=== PATIENT | male | born 1965 | race Two or more races ===

== ENCOUNTER 2022-08-22 11:50 | Emergency (ER) | payer BC ==
[~2022-08-22] VITALS: Ht 165.1 cm; Wt 72.6 kg
--- NOTE | 2022-08-22 12:13 | NUR ---
TO ER BED3. BIBS C/O PAIN ON HER RIGHT SIDE OF HIS CHEST THAT STARTED LAST NIGHT. PT IS TAKEN ANTIBIOTICS FOR DIVERTICULITIS. PAIN 7/10 ON PAIN SCALE. ATTACHED TO MONITOR, VITALS ARE WITHIN NORMAL LIMITS. AWAITING MD ORDERS.
[2022-08-22 12:46] LABS: BASOPHILS % (AUTO) 0.8 % (0.0-2.0); EOSINOPHILS % (AUTO) 1.9 % (0.0-6.0); HEMATOCRIT 45 % (39-51); LYMPHOCYTES # (AUTO) 1.9 K/uL (0.8-4.8); LYMPHOCYTES % (AUTO) 34.1 % (20.0-44.0); MEAN CORPUSCULAR HGB CONC 34 g/dl (31.0-36.0); MEAN CORPUSCULAR VOLUME 93 fL (80-96); MONOCYTES # (AUTO) 0.5 K/uL (0.1-1.30); MONOCYTES % (AUTO) 8.6 % (2.0-12.0); NEUTROPHILS # (AUTO) 3.1 K/uL (1.8-8.9); NEUTROPHILS % (AUTO) 54.6 % (43.0-81.0); PLATELET COUNT (AUTO) 199 K/uL (150-450); RED BLOOD CELL COUNT(AUTO) 4.83 MIL/uL (4.5-6.0); WHITE BLOOD COUNT (AUTO) 5.6 K/uL (4.3-11.0)
[2022-08-22 13:40] LABS: ALANINE AMINOTRANSFERASE 35 U/L (12-78); ALKALINE PHOSPHATASE 57 U/L (46-116); ASPARTATE AMINOTRANSFERASE 16 U/L (15-37); BILIRUBIN,TOTAL 0.7 mg/dL (0.2-1.0); CALCIUM, SERUM 9.1 mg/dL (8.5-10.1); CHLORIDE 108 mmol/L (98-107); GLUCOSE 109 mg/dL (74-106); POTASSIUM 4.5 mmol/L (3.5-5.1); SODIUM SERUM 143 mmol/L (136-145); TOTAL PROTEIN, SERUM 7.4 g/dL (6.4-8.2); UREA NITROGEN, BLOOD 14 mg/dL (7-18)
[2022-08-22 14:43] VITALS: BP 113/72
--- NOTE | 2022-08-22 14:43 | NUR ---
Patient discharged to home in stable condition. Written and verbal after care instructions given. Patient verbalizes understanding of instruction.
[2022-08-22 15:05] LABS: BILIRUBIN,DIRECT 0.1 mg/dL (0.0-0.2); CARBON DIOXIDE 24 mmol/L (21-32)
== END 2022-08-22 14:43 | disposition home or self-care (01) ==
LOC: ER 12:06
DX: R07.89 Other chest pain (principal)
CPT/HCPCS: 36415; 71045-TC; 80048-TC; 80076-TC; 83690-TC; 84484-TC; 85025-TC

== ENCOUNTER 2022-08-28 09:12 | Emergency (ER) | payer BC ==
[~2022-08-28] VITALS: Ht 165.1 cm; Wt 69.9 kg
[2022-08-28] MEDS ORDERED: KETOROLAC TROMETHAMINE INJ 30 MG/ML VIAL IV ONE (10:00)
[2022-08-28] MEDS ORDERED: ONDANSETRON HCL/PF 4 MG/2 ML VIAL IVP ONE (10:00)
[2022-08-28] MEDS ORDERED: IV NS 0.9% 1,000 ML BAG IV ONE (10:00)
--- NOTE | 2022-08-28 10:15 | NUR ---
IV ACCESS ESTABLISHED 18G LEFT AC. BLOOD DRAWN AND SENT TO LAB
[2022-08-28 10:44] LABS: CALCIUM, SERUM 9.5 mg/dL (8.5-10.1); POTASSIUM 4.2 mmol/L (3.5-5.1)
[2022-08-28 10:50] LABS: BILIRUBIN,DIRECT 0.1 mg/dL (0.0-0.2); BILIRUBIN,TOTAL 0.7 mg/dL (0.2-1.0); TOTAL PROTEIN, SERUM 7.4 g/dL (6.4-8.2)
[2022-08-28] MEDS ORDERED: ONDANSETRON HCL/PF 4 MG/2 ML VIAL ONE (10:57)
[2022-08-28] MEDS ORDERED: KETOROLAC TROMETHAMINE 15 MG/ML VIAL ONE (10:57)
--- NOTE | 2022-08-28 11:00 | NUR ---
BIBS C/O VOMITTING, DIARRHEA, LEFT SIDED ABDOMINAL PAIN RADIATING TO LEFT LOWER BACK PAIN. MD AT BEDSIDE FOR EVAL
[2022-08-28 11:09] LABS: BASOPHILS % (AUTO) 0.8 % (0.0-2.0); EOSINOPHILS % (AUTO) 2.5 % (0.0-6.0); HEMATOCRIT 45 % (39-51); HEMOGLOBIN 15.4 g/dL (13.5-17.5); LYMPHOCYTES # (AUTO) 1.9 K/uL (0.8-4.8); LYMPHOCYTES % (AUTO) 32.1 % (20.0-44.0); MEAN CORPUSCULAR HGB CONC 35 g/dl (31.0-36.0); MEAN CORPUSCULAR VOLUME 91 fL (80-96); MONOCYTES # (AUTO) 0.5 K/uL (0.1-1.30); MONOCYTES % (AUTO) 8.3 % (2.0-12.0); NEUTROPHILS # (AUTO) 3.3 K/uL (1.8-8.9); NEUTROPHILS % (AUTO) 56.3 % (43.0-81.0); PLATELET COUNT (AUTO) 211 K/uL (150-450); RED BLOOD CELL COUNT(AUTO) 4.89 MIL/uL (4.5-6.0); WHITE BLOOD COUNT (AUTO) 5.9 K/uL (4.3-11.0)
--- NOTE | 2022-08-28 11:19 | NUR ---
URINE SAMPLE COLLECTED AND SENT TO LAB
[2022-08-28] MEDS ORDERED: CT SWABBABLE VALVE TRANS SET 1 EA INFUS.SET MC ONE (11:35)
[2022-08-28] MEDS ORDERED: IV NS 0.9% 250 ML IV ONE (11:35)
[2022-08-28] MEDS ORDERED: IOHEXOL-300 100 ML VIAL IV ONE (11:35)
--- NOTE | 2022-08-28 11:40 | NUR ---
PATIENT TAKEN TO CT VIA TERRELL
[2022-08-28 11:47] LABS: BILIRUBIN,URINE NEGATIVE (NEGATIVE); COLOR,URINE YELLOW (YELLOW); LEUKOCYTE ESTERASE ,URINE NEGATIVE (NEGATIVE); NITRITE, URINE NEGATIVE (NEGATIVE); PROTEIN,URINE NEGATIVE (NEGATIVE); UGLUCOSE NEGATIVE (NEGATIVE); UROBILINOGEN,URINE 0.2 EU/dL (0.2)
[2022-08-28] MEDS ORDERED: LOPE2CAP40 PO (12:51)
[2022-08-28] MEDS ORDERED: DICY20TA11 PO (12:51)
[2022-08-28] MEDS ORDERED: KETO10TA2 PO (12:51)
[2022-08-28] MEDS ORDERED: ONDA4TAB11 PO (12:51)
--- NOTE | 2022-08-28 13:09 | NUR ---
IV removed. Catheter intact and site benign. Pressure and 4x4 applied to site. No bleeding noted.Patient discharged to home in stable condition. Written and verbal after care instructions given. Patient verbalizes understanding of instruction.
[2022-08-28 13:26] VITALS: BP 135/80
== END 2022-08-28 13:09 | disposition home or self-care (01) ==
LOC: ER 09:16
DX: R10.9 Unspecified abdominal pain (principal); R11.2 Nausea with vomiting, unspecified; I10 Essential (primary) hypertension
CPT/HCPCS: 99285; 74177; 96374; 96361; 96375; 85025; 80048; 83690; 80076; 81003; 36415; J2405; J7030; J7050; Q9967; J1885

== ENCOUNTER 2022-09-03 06:51 | Emergency (ER) | payer BC ==
[~2022-09-03] VITALS: Ht 160 cm; Wt 70.3 kg
[~2022-09-03 06:51] MED LIST: DICY20TA11 PO; KETO10TA2 PO; LOPE2CAP40 PO; ONDA4TAB11 PO
[2022-09-03] MEDS ORDERED: BENZONATATE 100 MG CAPSULE PO PRN (07:30)
[2022-09-03] MEDS ORDERED: KETOROLAC TROMETHAMINE INJ 30 MG/ML VIAL IM ONE (07:30)
[2022-09-03] MEDS ORDERED: BENZONATATE 100 MG CAPSULE PO ONE (07:44)
[2022-09-03] MEDS ORDERED: KETOROLAC TROMETHAMINE 15 MG/ML VIAL ONE (07:44)
--- NOTE | 2022-09-03 07:46 | NUR ---
COVID SWAB COLLECTED AND SENT
[2022-09-03] MEDS ORDERED: BENZ-13 PO (07:57)
[2022-09-03] MEDS ORDERED: ACET-2605 PO (08:46)
--- NOTE | 2022-09-03 09:12 | NUR ---
Patient discharged to home in stable condition. Written and verbal after care instructions given. Patient verbalizes understanding of instruction.
[2022-09-03 09:19] VITALS: BP 138/80
== END 2022-09-03 09:21 | disposition home or self-care (01) ==
LOC: ER 06:51
DX: J06.9 Acute upper respiratory infection, unspecified (principal); R05.9 Cough, unspecified; R09.81 Nasal congestion; I10 Essential (primary) hypertension; Z20.822 Contact with and (suspected) exposure to COVID-19
CPT/HCPCS: 99285; 71045; 87426; 96372; 93005; J7040; J1885; C9803

== ENCOUNTER 2022-10-31 09:00 | Emergency (ER) | payer BC ==
[~2022-10-31] VITALS: Ht 165.1 cm; Wt 72.6 kg
[~2022-10-31 09:00] MED LIST changes: +ACET-2605 PO; +BENZ-13 PO
[2022-10-31] MEDS ORDERED: IV NS 0.9% 1,000 ML BAG IV ONE (09:30)
[2022-10-31] MEDS ORDERED: MORPHINE SULFATE INJ 2 MG/ML DISP.SYRIN ONE (09:38)
[2022-10-31 09:42] LABS: BASOPHILS % (AUTO) 0.6 % (0.0-2.0); EOSINOPHILS # (AUTO) 0.2 K/uL (0.0-0.7); EOSINOPHILS % (AUTO) 3.1 % (0.0-6.0); HEMATOCRIT 45 % (39-51); HEMOGLOBIN 15.3 g/dL (13.5-17.5); LYMPHOCYTES # (AUTO) 1.7 K/uL (0.8-4.8); LYMPHOCYTES % (AUTO) 33.8 % (20.0-44.0); MEAN CORPUSCULAR HEMOGLOBIN 31 PG (26.0-33.0); MEAN CORPUSCULAR HGB CONC 34 g/dl (31.0-36.0); MEAN CORPUSCULAR VOLUME 91 fL (80-96); MONOCYTES # (AUTO) 0.4 K/uL (0.1-1.30); MONOCYTES % (AUTO) 7.2 % (2.0-12.0); NEUTROPHILS # (AUTO) 2.7 K/uL (1.8-8.9); NEUTROPHILS % (AUTO) 55.3 % (43.0-81.0); PLATELET COUNT (AUTO) 202 K/uL (150-450); RED CELL DISTRIBUTION WIDTH 14.6 % (11.5-15.0); WHITE BLOOD COUNT (AUTO) 4.9 K/uL (4.3-11.0)
[2022-10-31 09:48] LABS: APPEARANCE,URINE CLEAR (CLEAR); BILIRUBIN,URINE NEGATIVE (NEGATIVE); BLOOD, URINE TRACE-INTA Ery/uL (NEGATIVE); COLOR,URINE YELLOW (YELLOW); KETONES,URINE NEGATIVE (NEGATIVE); LEUKOCYTE ESTERASE ,URINE NEGATIVE (NEGATIVE); NITRITE, URINE NEGATIVE (NEGATIVE); PH,URINE 5.5 (5.0-8.0); PROTEIN,URINE NEGATIVE (NEGATIVE); UGLUCOSE NEGATIVE (NEGATIVE); UROBILINOGEN,URINE 0.2 EU/dL (0.2)
[2022-10-31 09:51] LABS: CALCIUM, SERUM 8.8 mg/dL (8.5-10.1); CREATININE 0.7 mg/dL (0.6-1.3); POTASSIUM 3.9 mmol/L (3.5-5.1)
[2022-10-31] MEDS ORDERED: MORPHINE SULFATE INJ 2 MG/ML DISP.SYRIN IV ONE (10:00)
[2022-10-31 10:04] LABS: ALBUMIN 3.9 g/dL (3.4-5.0); BILIRUBIN,DIRECT 0.1 mg/dL (0.0-0.2); TOTAL PROTEIN, SERUM 7.3 g/dL (6.4-8.2)
[2022-10-31 11:13] VITALS: BP 122/82; TEMP 98.1; O2SAT 100
== END 2022-10-31 11:14 | disposition home or self-care (01) ==
LOC: ER 09:05
DX: R10.84 Generalized abdominal pain (principal); I10 Essential (primary) hypertension
CPT/HCPCS: 99285; 74176; 96374; 96361; 85025; 80048; 87086; 83690; 80076; 81003; 36415; J7030; J2270